=== PATIENT | female | born 1950 | race Caucasian/White ===

== ENCOUNTER 2017-07-15 13:06 | Emergency (ER) | payer MEDICARE | END 2017-07-15 13:49 | disposition home or self-care (01) | LOC: MADERS 13:06 | DX: G56.92 Unspecified mononeuropathy of left upper limb (principal); E03.9 Hypothyroidism, unspecified; K21.9 Gastro-esophageal reflux disease without esophagitis; E78.5 Hyperlipidemia, unspecified; Z79.899 Other long term (current) drug therapy | CPT/HCPCS: 99283 ==